=== PATIENT | male | born 1975 | race Caucasian/White ===

== ENCOUNTER → 2022-02-18 | Outpatient (CLI) | payer OTHER ==
[~2022-02-18] MED LIST: HYDR-2761 PO; IBUP-1027 PO; TIZA2CAP PO
== END ==
LOC: LAB 09:54
PROVIDERS: ATTEND Surgery
DX: Z01.812 Encounter for preprocedural laboratory examination (principal); Z20.822 Contact with and (suspected) exposure to COVID-19
CPT/HCPCS: U0003

== ENCOUNTER 2022-02-20 11:09 | Day surgery (SDC) | payer OTHER ==
[~2022-02-20] VITALS: Ht 185.4 cm; Wt 95.0 kg
[~2022-02-20 11:09] MED LIST changes: -HYDR-2761 PO; +HYDROmorphone 2 MG/ML INJ. IVP PRN; +IV RINGERS,LACTATED 1000ML 1,000 ML IV SCH; +MORPHINE SULFATE 2 MG/ML INJ. IVP PRN; +PROCHLORPERAZINE 10 MG/2 ML VIAL. IVP PRN; +fentaNYL PF VIAL 100 MCG/2 ML VIAL IVP PRN
[2022-02-20 11:35] VITALS: BP 154/90
[2022-02-20] MEDS ORDERED: PROPOFOL 10 MG/ML (20ML) VIAL. IV ONE (12:39)
[2022-02-20] MEDS ORDERED: fentaNYL PF VIAL 100 MCG/2 ML VIAL ONE ×2 (12:39→14:53)
[2022-02-20] MEDS ORDERED: LIDOCAINE 2% PF 5 ML VIAL. ONE (12:40)
[2022-02-20] MEDS ORDERED: ROCURONIUM 50 MG/5 ML VIAL. ONE (13:32)
[2022-02-20] MEDS ORDERED: DEXAMETHASONE SOD PHOS 4 MG/ML VIAL ONE (13:33)
[2022-02-20] MEDS ORDERED: LIDOCAINE 1%/EPI 1:100,000 20 ML VIAL. ONE (13:33)
[2022-02-20] MEDS ORDERED: ONDANSETRON PF 4 MG/2 ML VIAL. ONE (14:35)
--- NOTE | 2022-02-20 14:46 | PDOC4 ---
Operative Note Operative Note Operative Note: Preoperative Diagnosis: Left neck mass Postoperative Diagnosis: Same Procedure: Excision of left neck mass, 3X3 cm, subcutaneous, no margins Surgeon: [employer] Specialist: Samuel Riley MS 3 Anesthesia: General EBL: 5 mL Specimen: Neck mass to pathology, 3 x 3 cm Drains: None Complications: None Indication: The patient is a 46-year-old male who is referred with a subcutaneous left mass that has become bothersome. Clinically it appears most consistent with a lipoma. He requests excision. The risks of surgery were discussed which include bleeding, infection, scar tissue, pain, anesthetic risk, numbness tingling, potential need for additional surgery procedure. He understands and would like to proceed. Description: The patient was taken the operating room and placed supine in the operating table. General anesthesia was performed. He was then rolled with his right side down exposing the left posterior neck. The skin was prepped with ChloraPrep and draped in standard surgical manner. An incision was made overlying the mass in a skin crease. Cautery dissection was carried down into the subcutaneous tissues. The mass was comprised of lobulated adipose tissue c onsistent with a lipoma. There were some fibrous septae present. With primarily sharp dissection the mass was mobilized from the surrounding tissues and fully excised. The mass measured 3 x 3 cm and was sent to pathology for evaluation. Hemostasis was achieved with cautery. The subcutaneous tissue was closed with 3-0 Vicryl. Skin was approximated with 4 Monocryl. Steri-Strips and a sterile dressing were applied. The patient tolerated the procedure well and was sent to the recovery room in stable condition. At the end the case all counts were correct. LITTLE SPENCE MD Feb 20, 2022 14:46
[2022-02-20] MEDS ORDERED: HYDR-2761 PO (14:48)
--- NOTE | 2022-02-20 14:49 | DISCH ---
DISCHARGE INSTRUCTIONS Condition on Discharge Condition on Discharge: Stable Activity After Discharge Activity Instructions for Disc: Activity as tolerated Diet after Discharge Diet after Discharge: Regular Wound Incision Care Wound/Incision Care: Other, see below (keep dressing clean and dry X 72 hours, may then remove and shower) Follow-Up Follow up with: Dr Spence in office in 2 weeks, call for appointment [phone] LITTLE SPENCE MD Feb 20, 2022 14:49
[2022-02-20] MEDS: fentaNYL PF VIAL 100 MCG/2 ML VIAL IVP PRN ×2 (14:56→15:29)
[2022-02-20] MEDS ORDERED: HYDROcodone/APAP 5/325MG 1 TAB TABLET PO ONE (15:45)
[2022-02-20 16:10] VITALS: BP 159/99
--- NOTE | 2022-02-22 18:09 | PATHOLOGY ---
[facility] Accession Number: [id number] . 01 Material submitted: . neck - NECK MASS . 01 Clinical history: . EXCISION LEFT NECK MASS . 02 Diagnosis: Soft tissue "left neck mass", excision: - Fibrolipoma; negative for malignancy. (RAYSAK:johny; 02/22/2022) [facility] 02/22/2022 1620 Local . 02 Electronically signed: . Sepideh Martinez MD, Pathologist NPI- [id number] . 01 Gross description: . Fixative: Formalin Labeled: Neck mass Specimen received: Slightly ragged fragment of yellow-torres soft tissue Dimensions: 4.5 x 2.0 x 1.2 cm External surface: Yellow-torres and lobulated, ragged, unencapsulated The external surface is inked black. Cut surface: Yellow-torres and homogeneous . Research Center Director sections are submitted in A1-A2. ([facility]; 02/21/2022) [facility] 02/21/2022 0927 Local . 02 Pathologist provided ICD-10: D17.0 . 02 CPT . 487116 Specimen Comment: A courtesy copy of this report has been sent to [phone] Specimen Comment: Report sent to Specimen Comment: A duplicate report has been generated due to demographic updates. Performed at: 01 [facility] [address] [facility] [address], [place] [id number] MD Christopher King MD Phone: [phone] Performed at: 02 [facility] [address] [id number] MD David Pineda MD Phone: [phone]
== END 2022-02-20 16:42 | disposition home or self-care (01) ==
LOC: SURG 11:09
PROVIDERS: ATTEND Surgery
DX: D17.0 Benign lipomatous neoplasm of skin and subcutaneous tissue of head, face and neck (principal); Z79.899 Other long term (current) drug therapy; Z98.890 Other specified postprocedural states; Z72.89 Other problems related to lifestyle
CPT/HCPCS: 21552; 88304; A4364; A4930; A6402; J0690; J1100; J2405; J2704; J3010; A4452; A4657; J3490